=== PATIENT | male | born 1995 | race Caucasian/White ===

== ENCOUNTER 2020-07-08 08:27 | Emergency (ER) | payer MEDICAID, SELFPAY ==
[2020-07-08 08:27] VITALS: BP 128/91; PULSE 114; RESP 20; TEMP 36.4; O2SAT 99; BMI 20.7
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
[2020-07-08 09:06] VITALS: BP 130/90; PULSE 78; RESP 20; TEMP 36.4; O2SAT 98
== END 2020-07-08 09:08 ==
PROVIDERS: Emergency Provider Emergency Medicine
DX: Z00.8 Encounter for other general examination (principal); R07.9 Chest pain, unspecified; R60.0 Localized edema
CPT/HCPCS: 99282